=== PATIENT | male | born 1965 | race Caucasian/White ===

== ENCOUNTER → 2022-12-01 08:14 | Outpatient (CLI) | payer BC, SELFPAY ==
--- NOTE | ~2022-12-01 | CT_ITS ---
EXAMINATION: CT cervical spine wo con DATE: 12/01/2022 08:32 INDICATION: Neck pain. Left thumb paresthesias. TECHNIQUE: Computed tomography (CT) of the cervical spine was performed without intravenous contrast. Automated exposure control and iterative reconstruction technique were employed. The dose-length pro duct was 259.65 mGy-cm. COMPARISON: None FINDINGS: Bone alignment is normal. There is mild chronic anterior wedging of T1 vertebral body. Ther e is mildly decreased disc height at C4-C5 and moderately decreased disc height at C5-C6. The followi ng disc levels are specifically discussed: C2-C3: There is moderate right and mild left uncovertebral joint osteoarthritis. There is mild right and severe left facet joint osteoarthritis. There is mild bilateral neural foraminal stenosis. There is no central canal stenosis. C3-C4: There is moderate bilateral uncovertebral joint osteoarthritis. There is mild bilateral facet joint osteoarthritis. There is mild right and moderate left neural foraminal stenosis. There is mild central canal stenosis. C4-C5: There is mild bilateral uncovertebral joint osteoarthritis. There is mild bilateral facet join t osteoarthritis. There is mild bilateral neural foraminal stenosis. There is mild central canal sten osis. C5-C6: There is severe bilateral uncovertebral joint osteoarthritis. There is mild bilateral facet marcia int osteoarthritis. There is moderate bilateral neural foraminal stenosis. There is moderate central canal stenosis. C6-C7: There is mild right uncovertebral joint osteoarthritis. There is mild right and severe left fa cet joint osteoarthritis. There is mild right neural foraminal stenosis. There is mild central canal stenosis. C7-T1: There is no uncovertebral joint osteoarthritis. There is ankylosis of the facet joints without hypertrophy. There is no neural foraminal stenosis. There is no central canal stenosis. IMPRESSION: 1. Moderate cervical spondylosis. Reviewed, dictated and finalized at location A.
== END ==
PROVIDERS: PCP Family Medicine Adolescent Medicine; Visit Provider Family Medicine Adolescent Medicine
DX: R20.2 Paresthesia of skin (principal); M47.22 Other spondylosis with radiculopathy, cervical region
CPT/HCPCS: 72125